=== PATIENT | male | born 2005 | race Caucasian/White ===

== ENCOUNTER 2024-10-17 17:41 | Emergency (ER) | payer OTHER, SELFPAY ==
--- NOTE | 2024-10-17 17:45 | ED_ITS ---
HPI - URI/Sore Throat General Chief Complaint: Upper Respiratory Infection Stated Complaint: No Smell and Taste/Cough/Runny Nose Time Seen by Provider: 10/17/24 17:55 Source: patient and RN notes reviewed Mode of arrival: ambulatory Limitations: no limitations History of Present Illness HPI Narrative: 19-year-old male presents with concern for 2 week history of sinus congestion sore throat, congestion, cough. He has been taking Mucinex. He reports today he lost his sense of taste and smell. MD elicited complaint: cough and nasal congestion Related Data Allergies Allergy/AdvReac Type Severity Reaction Status Date / Time No Known Allergies Allergy Verified 10/17/24 17:56 Review of Systems Review of Systems: CONSTITUTIONAL: Denies malaise, chills, sweats, or fever. EYES: Denies visual changes, redness, or discharge. ENT: Reports rhinorrhea, congestion, and sore throat. CARDIOVASCULAR: Denies chest pain, palpitations, or edema. RESPIRATORY: Reports cough. Denies dyspnea. GASTROINTESTINAL: Denies abdominal pain, nausea, vomiting, diarrhea SKIN: Denies rash or itching. MUSCULOSKELETAL: Denies myalgia. NEUROLOGIC: Denies headache. All systems reviewed & are unremarkable except as noted in HPI and below PMFSH Comments At time of signature, agree with nursing past medical, surgical, social and family history. There is no relevant family history pertinent to the presenting complaint Exam Narrative: GENERAL: Well-appearing, well-nourished, and in no acute distress. HEAD: Normocephalic EYES: PERRLA, conjunctivae clear ENT: Nares clear, turbinates edematous and erythematous. Mucous membranes moist. TM pearly bernal with dull light reflex bilaterally; no tragal tenderness. Oropharynx not erythematous without lesions. Tonsils not enlarged and without exudate, no drooling, no hoarseness, no trismus, uvula midline. NECK: Supple. No lymphadenopathy CHEST: Clear to auscultation, breath sounds equal. No wheezing, rhonchi, rales, or stridor. No respiratory distress, speaks in full sentences. HEART: Regular rate and rhythm. No murmur heard. SKIN: Warm, dry, no rash. NEURO: Alert and oriented x3. PSYCH: Normal mood and affect Course Course Emergency Course: Patient is aware of diagnosis, understands and agrees to treatment plan. Anticipatory guidance given. Patient agrees to follow-up as directed and is aware of reasons to seek care at the emergency department. Portions of this record may have been created with voice recognition software Level of Care: Express Care Visit Vital Signs Vital signs: Reviewed. MDM - URI/Sore Throat MDM Narrative Medical decision making narrative: Differential diagnosis considered: Garcia virus, strep pharyngitis, allergic rhinitis, upper respiratory tract infection, sinusitis, rhinosinusitis, haylie opharyngitis. viral pharyngitis, otitis media, otitis externa, pneumonia, bronchitis, viral cough syndrome, viral syndrome, and influenza. Exam findings show no acute concerns or changes; patient is non-toxic appearing and is in no distress. Patient is appropriate for outpatient treatment and follow-up. Lab Data Attestation: I reviewed the patient's lab results. Critical Care Time Critical Care Time Critical Care Time: No Discharge Plan Discharge Clinical Impression: Sinusitis Patient Disposition: Home Condition: Stable Instructions: Antibiotic Form, Sinusitis (ED) Additional Instructions: Take medication as directed Nonprescription pain medications, such as acetaminophen (eg, Tylenol) or ibuprofen (eg, Motrin, Advil), are recommended for pain. Flushing the nose and sinuses with a saline solution several times per day has been proven to decrease pain associated with congestion and shorten the duration of symptoms. Nasal steroids (such as Flonase, 2 sprays in each nostril daily) can help to reduce swelling inside the nose, usually within two to three days. These drugs have few side effects and relieve symptoms in most people. Oral decongestants (pseudoephedrine and phenylephrine) may be helpful if you have associated symptoms of ear pain or fullness. Nasal decongestant sprays, including oxymetazoline (Afrin) and phenylephrine (Juan Alberto-Synephrine), can be used to temporarily treat congestion. However, these sprays should not be used for more than two to three days due to the risk of rebound congestion (when the nose becomes congested constantly unless the medication is used repeatedly), possible addiction, and long-term consequences of frequent use, including persistent nasal dryness and crusting, which is very difficult to treat once it has developed. Medications to thin secretions (such as guaifenesin) may help to clear mucus. Please follow-up with your primary care doctor in the next 1-2 days. If you cannot follow-up with your primary care doctor please go to the ED for any urgent issues. If you have any worsening of symptoms or any other concerns please go to the ED immediately. Patient Language: Sudanese Prescriptions: New pseudoephedrine HCl [12 Hour Decongestant] 120 mg tablet extended release 120 mg PO Q12H PRN (Reason: nasal congestion) Qty: 20 0RF amoxicillin-pot clavulanate 875-125 mg tablet 1 tablet PO Q12H 10 Days Qty: 20 0RF Follow-up/Referrals: UNKNOWN,DOCTOR [Non-Staff] - Time of Disposition: 18:06
--- OUTSIDE RECORDS SUMMARY | 2024-10-17 17:51 | XMS_ITS | Clinical Summary ---
Author Organization [facility] Virtual Care Address [address] [place] [id number] Phone Care Team Providers Care Underwriting Account Representative Name Role Phone No, Physician Primary Care Provider [phone] Allergies No known active allergies Medications dicyclomine (BENTYL) 10 mg capsuleIndicati ons:Abdominal cramping Take 1 capsule (10 mg total) by mouth 4 (four) times a day as needed (abdominal cramping) 20 capsule 1 4 Active Additional Information Patient not taking.Reported on 03/27/2024 Active Problems Problem Noted Date Diagnosed Date School physical exam 05/14/2017 Immunizations Immunization Administration Dates Next Due DTaP 10/16/2008,07/25/2004 DTaP / Hep B / IPV 2003,2003, 004 HPV9 05/21/2018,10/30/2017 Hep A, Pediatric 10/30/2017,09/30/2014 HiB 07/25/2004,2003,2003 ,2003 IPV 10/16/2008 Influenza, Unspecified 12/31/2022(Deferr ed: Patient Refused),12/30/2022(Deferred: Patient Refused) MMR 10/16/2008,07/25/2004 Meningococcal Conjugate (Menveo) 11/22/2020,09/07 Pneumococcal Conjugate 7-Valent 07/25/2004,02/12,2003 Tdap 09/30/2014 Varicella 10/10/2014,02/13/2004 Family History Medical History Relation Name Comments Hypertension Other Family history of Hypertension; Relation Name Status Comments Other Social History Tobacco Use Types Packs/Day Years Used Date Smoking Tobacco: Never Smokeless Tobacco: Never Tobacco Cessation:Counseling Given: Not Answered Personal Safety Answer Date Recorded Have you ever been in or are you currently in a harmful physical or emotional relationship or is someone making you feel afraid or unsafe? Denies 05/20/2024 Sex and Gender Information Value Date Recorded Sex Assigned at Not on file Legal Sex Male 11:27 PM [employer] Gender Identity Not on file Sexual Orientation Not on file Obstetrics History Last Filed Vital Signs Vital Sign Reading Time Taken Comments Blood Pressure 125/74 05/20/2024 10:15 AM CDT Pulse 72 05/20/2024 10:15 AM CDT Temperature 36.9 C (98.4 F) 05/20/2024 8:29 AM CDT Respiratory Rate 18 05/20/2024 10:15 AM CDT Oxygen Saturation 98% 05/20/2024 10:15 AM CDT Inhaled Oxygen Concentration - - Weight 63.5 kg (140 lb) 05/20/2024 8:29 AM CDT Height 172.7 cm (5' 8) 05/20/2024 8:29 AM CDT Body Mass Index 21.29 05/20/2024 8:29 AM CDT Plan of Treatment Health Maintenance Due Date Last Done Comments Hepatitis C Screening 2003 Depression Screening 05/14/2018 05/14/2017, 05/15/19 18 Meningococcal B Vaccine (1 o f 2 - Standard) 2019 Regular Well Visit/Exam 18-64 2021 Covid-19 Vaccine (3 - 2023-2 5 season) 2023 07/17/2020, 06/26/2020 DTaP/Tdap/Td Vaccine (7 - Td or Tdap) 09/30/2024 09/30/2014, 10/16/2008, 07/25/2004, Additional history exists Influenza Vaccine (#1) 2024 Hepatitis B Screening Completed 2003 , 2003, 2003 Pneumococcal vaccine <65 Completed 005, 02/13/2004, 2003 Varicella Vaccines Completed 10/10/2014, 02/13/2004 HPV Vaccines Completed 05/21/2018, 10/30/2017 Meningococcal Vaccine Completed 11/22/2020, 015 Insurance BLUE ACCESS CHOICE [place] BL[place] [employer] [place] [employer] SIG [id number] Care Teams Underwriting Account Representative Relationship Specialty Start Date End Date No, Physician PCP - General 08/02/23
--- OUTSIDE RECORDS SUMMARY | 2024-10-17 17:51 | XMS_ITS | Clinical Summary ---
Author Organization [facility] Address [address] [place] [address] Phone Care Team Providers Care Truant Officer Name Role Phone Brittany Sparrow MD Unavailable [phone] Conchita Bagley APRN, CUSTOMER ADVISOR SPECIALIST Unavailable Modesto Salinas PAC Primary Care Provider [phone] Allergies No known active allergies Medications IBUPROFEN PO Take by mouth. Active dicyclomine (BENTYL) 10 MG Capsule Take 10 mg by mouth. 10/07/2023 Active Active Problems No known active problems Immunizations Immunization Administration Dates Next Due Covid-19, Mrna, Lnp-s, Pf, 3 0 Mcg/0.3 Ml Dose ([place]) 07/17/2020,06/26/2020 DTAP VACCINE 10/16/2008,07/25/2004 DTAP/HEPB/IPV Vaccine 2003,2003,03/09 Hepatitis A Vaccine, Pediatric/adolescent, 2 Dose Schedule 10/30/2017,09/30/2014 Hib Vaccine,unspecified Formulation 07/07,2003,2003,03/21 Human Papillomavirus (HPV) 9 -valent Vaccine 05/21/2018,10/30/2017 Inactivated Polio Vaccine 10/16/2008 MMR Vaccine 10/16/2008,07/25/2004 Meningococcal MCV4O 11/22/2020,09/30/2014 Pneumococcal Vaccine Peds - 7 Valent 07/25/2004, 02/13/2004,2003 TDAP Vaccine 09/30/2014 Varicella Vaccine Live 10/10/2014,02/13/2004 Social History Tobacco Use Types Packs/Day Years Used Date Smoking Tobacco: Never Smokeless Tobacco: Never Tobacco Cessation:Counseling Given: Not Answered Alcohol Use Standard Drinks/Week Comments Never 0 (1 standard drink = 0.6 oz pur e alcohol) Sexually Active Control Partners Comments Not Currently Sex and Gender Information Value Date Recorded Sex Assigned at Not on file Legal Sex Male 10:30 PM CDT Gender Identity Not on file Sexual Orientation Not on file Last Filed Vital Signs Vital Sign Reading Time Taken Comments Blood Pressure 100/54 10/12/2023 2:06 PM CDT Pulse 83 10/12/2023 2:06 PM CDT Temperature 37 C (98.6 F) 10/12/2023 2:06 PM CDT Respiratory Rate 14 10/12/2023 2:06 PM CDT Oxygen Saturation 100% 10/12/2023 2:06 PM CDT Inhaled Oxygen Concentration - - Weight 59.9 kg (132 lb) 10/12/2023 2:06 PM CDT Height 175.3 cm (5' 9) 10/12/2023 2:06 PM CDT Body Mass Index 19.49 10/12/2023 2:06 PM CDT Plan of Treatment Upcoming Encounters Date Type Department Care Team (Late st Contact Info) Description 11/04/2024 4:45 PM CDT Office Visit [facility] - [facility] [address] [place] [address] Modesto Salinas PAC [address] [place] [address] Health Maintenance Due Date Last Done Comments Hepatitis C Virus (HCV) Screening 2003 Meningococcal B Immunization (1 of 2 - Standard) 2019 SARS-COV-2 Immunization ( - season) 2023 07/17/2020, 06/26/2020 DTaP/Tdap/Td Immunization (7 - Td or Tdap) 09/30/2024 09/30/2014, 10/16/2008, 07/25/2004, Additional history exists Influenza Immunization (#1) 2024 Respiratory Syncytial Virus (RSV) Immunization (Adult) (1 - 1-dose 75+ series) 2078 Hepatitis B Immunization Completed 004, 2003, 2003 Pneumococcal Immunization Combined Aged Out 07/25/2004, 02/13/2004, 2003 No longer eligible based on patient's age to complete this topic Measles Mumps Rubella (MMR) Immunization Discontinued 10/16/2008, 07/25/2004 Polio (IPV) Immunization Discontinued 009, 2003, 2003, Additional history exists Varicella Immunization Discontinued 10/10/2014, 2003 Hepatitis A Immunization Discontinued 10/30/2017, 09/07 Human Papillomavirus (HPV) Immunization Completed 05/21/2018, 10/30/2017 Meningococcal Immunization (ACWY) Completed 11/22/2020, 09/30/2014 Rotavirus Immunization Aged Out No lo nger eligible based on patient's age to complete this topic Insurance [facility] Care Teams Truant Officer Relationship Specialty Start Date End Date Modesto Salinas, PAC [address] [place] [address] PCP - General Physician Medical Office Clerk 10/14/24 Brittany Sparrow MD [address] [address] Consulting Physician Urology 08/14/23 Conchita Bagley APRN, CUSTOMER ADVISOR SPECIALIST [address] [place] [address] Nurse Practitioner Advanced Practice Nurse 10/12/23
[2024-10-17 17:52] VITALS: BP 128/77; PULSE 68; RESP 14; TEMP 36.7; O2SAT 100
[2024-10-17 18:10] LABS: EDCOVIDSCREEN Negative (Negative)
== END 2024-10-17 18:09 | disposition home or self-care (01) ==
PROVIDERS: Emergency Provider Nurse Practitioner
DX: J32.9 Chronic sinusitis, unspecified (principal); Z20.822 Contact with and (suspected) exposure to COVID-19
CPT/HCPCS: 87426; 99203; G0463